=== PATIENT | male | born 1975 | race Caucasian/White ===

== ENCOUNTER 2023-09-28 09:12 | Day surgery (SDC) | payer BC, OTHER ==
[~2023-09-28 09:12] MED LIST: Lactated Ringers 1,000 ML IV SCH
[2023-09-28] MEDS: Lactated Ringers 1,000 ML IV SCH (09:24)
[2023-09-28] MEDS ORDERED: fentaNYL 100 MCG/2 ML SDV ONE (09:51)
[2023-09-28] MEDS ORDERED: Propofol 200 MG/20 ML SDV ONE ×2 (09:51→10:09)
[2023-09-28] MEDS ORDERED: Midazolam 1 MG/ML 2 ML SDV ONE (09:51)
[2023-09-28] MEDS ORDERED: Lidocaine 4% 5 ML Amp ONE (10:21)
[2023-09-28 11:45] VITALS: BP 126/102; PULSE 58
== END 2023-09-28 11:37 | disposition home or self-care (01) ==
LOC: VM.SDS 09:12
PROVIDERS: ATTEND Surgery
DX: Z12.11 Encounter for screening for malignant neoplasm of colon (principal); D12.6 Benign neoplasm of colon, unspecified; R19.5 Other fecal abnormalities; E03.9 Hypothyroidism, unspecified; E78.2 Mixed hyperlipidemia; E66.01 Morbid (severe) obesity due to excess calories; R73.03 Prediabetes; E05.90 Thyrotoxicosis, unspecified without thyrotoxic crisis or storm; I50.22 Chronic systolic (congestive) heart failure; Z88.0 Allergy status to penicillin; Z79.899 Other long term (current) drug therapy; Z79.890 Hormone replacement therapy; Z79.82 Long term (current) use of aspirin
CPT/HCPCS: J2250; J2704; J3010; J3490; J7120